=== PATIENT | male | born 1935 | race Hispanic/Latino ===

== ENCOUNTER → 2019-05-22 | Outpatient (CLI) | payer MEDICARE ==
[~2019-05-22] MED LIST: AEC81 PO; GEMF600T5 PO; LOSA1TAB37 PO
== END | disposition home or self-care (01) ==
LOC: SHCH 04-23 09:50
PROVIDERS: ATTEND Internal Medicine Cardiovascular Disease
DX: I35.0 Nonrheumatic aortic (valve) stenosis (principal)
CPT/HCPCS: 93306

== ENCOUNTER → 2020-09-17 | Outpatient (CLI) | payer MEDICARE | END | disposition home or self-care (01) | LOC: SHCH 15:45 | PROVIDERS: ATTEND Internal Medicine Cardiovascular Disease | DX: I35.2 Nonrheumatic aortic (valve) stenosis with insufficiency (principal); I10 Essential (primary) hypertension; E11.9 Type 2 diabetes mellitus without complications; E78.5 Hyperlipidemia, unspecified | CPT/HCPCS: 93306; 93356 ==

== ENCOUNTER → 2020-09-22 | Outpatient (CLI) | payer MEDICARE | END | disposition home or self-care (01) | LOC: SHCH 15:20 | PROVIDERS: ATTEND Internal Medicine Cardiovascular Disease | DX: I65.23 Occlusion and stenosis of bilateral carotid arteries (principal); E78.5 Hyperlipidemia, unspecified; E11.9 Type 2 diabetes mellitus without complications; I10 Essential (primary) hypertension | CPT/HCPCS: 93880 ==

== ENCOUNTER → 2021-11-24 | Outpatient (CLI) | payer MEDICARE ==
[~2021-11-24] MED LIST changes: -GEMF600T5 PO; +GEMF600T89 PO
== END | disposition home or self-care (01) ==
LOC: SHCH 14:09
PROVIDERS: ATTEND Internal Medicine Cardiovascular Disease
DX: I08.8 Other rheumatic multiple valve diseases (principal); I11.9 Hypertensive heart disease without heart failure; E11.9 Type 2 diabetes mellitus without complications; E78.5 Hyperlipidemia, unspecified
CPT/HCPCS: 93306

== ENCOUNTER 2022-08-16 19:41 | Observation (INO) | payer MEDICARE ==
[~2022-08-16] VITALS: Ht 165.1 cm; Wt 60.1 kg
[2022-08-16] MEDS ORDERED: 0.9%NACL 1000ML 1,000 ML IV ONE (20:00)
[2022-08-16] MEDS ORDERED: ACETAMINOPHEN 325 MG TAB PO SCH (20:00)
[2022-08-16 20:18] LABS: APPEARANCE,URINE CLEAR (CLEAR); BILIRUBIN,URINE NEGATIVE (NEGATIVE); COLOR,URINE LIGHT-YELLOW (YELLOW); GLUCOSE, URINE (UA) NEGATIVE (NEGATIVE); KETONES,URINE NEGATIVE (NEGATIVE); LEUKOCYTE ESTERASE ,URINE NEGATIVE Leu/uL (NEGATIVE); NITRATE,URINE NEGATIVE (NEGATIVE); OCCULT BLOOD,URINE LARGE (NEGATIVE); PH,URINE 5.5 (5.0-8.0); PROTEIN,URINE 10 mg/dL (NEGATIVE); UROBILINOGEN,URINE 0.2 mg/dL (0.2-1.0)
[2022-08-16 20:19] LABS: BASOPHILS % (AUTO) 0.4 % (0.0-5.0); EOSINOPHILS % (AUTO) 0.3 % (0.0-8.0); HEMATOCRIT 43.4 % (42-54); LYMPHOCYTES % (AUTO) 19.5 % (21.0-51.0); MEAN CORPUSCULAR HEMOGLOBIN 30.5 pg (27.0-33.0); MEAN CORPUSCULAR HGB CONC 34.6 g/dL (32.0-36.0); MEAN CORPUSCULAR VOLUME 88.2 fL (79-99); MONOCYTES % (AUTO) 10.9 % (3.0-13.0); NEUTROPHILS % (AUTO) 68.5 % (40.0-77.0); PLATELET COUNT (AUTO) 179 K/uL (130-400); RED BLOOD CELL COUNT(AUTO) 4.92 MIL/uL (4.50-6.20); RED CELL DISTRIBUTION WIDTH 12.6 % (11.0-15.5); WHITE BLOOD COUNT (AUTO) 7.5 K/uL (4.8-10.8)
[2022-08-16 20:33] LABS: CREATININE 1.1 mg/dL (0.5-1.5); POTASSIUM 3.8 mmol/L (3.5-5.1)
[2022-08-16 20:38] LABS: ALBUMIN 3.1 g/dL (3.5-5.0); TOTAL PROTEIN, SERUM 7.3 g/dL (6.0-8.3)
[2022-08-16] MEDS ORDERED: AZITHROMYCIN 500MG+NS 250ML 250 ML ONE (20:49)
[2022-08-16 20:51] LABS: BACTERIA,URINE RARE /HPF (None Seen); MUCUS,URINE RARE LPF (None Seen); RBC,URINE 51-100 /HPF (0-1); SQUAMOUS EPITHELIAL CELL,UR RARE /HPF (0-2)
[2022-08-16] MEDS ORDERED: 0.9%NACL 1000ML 1,000 ML IV SCH (21:00)
[2022-08-16] MEDS ORDERED: AZITHROMYCIN 500MG+NS 250ML IVPB SCH (21:00)
[2022-08-16] MEDS ORDERED: CEFTRIAXONE 1G VIAL IVP SCH (21:00)
[2022-08-16] MEDS ORDERED: CLONIDINE HCL 0.1 MG TABLET PO PRN (22:00)
[2022-08-16] MEDS ORDERED: LACTULOSE 20 GM/30 ML UDCUP PO PRN (22:00)
[2022-08-16] MEDS ORDERED: ACETAMINOPHEN 325 MG TAB PO PRN (22:00)
[2022-08-16] MEDS ORDERED: LABETALOL 20MG SYG IV PRN (22:00)
[2022-08-16] MEDS ORDERED: ACETAMINOPHEN 650 MG SUPPOSITORY RC PRN (22:00)
[2022-08-16] MEDS ORDERED: TEMAZEPAM 15 MG CAPSULE PO PRN (22:00)
[2022-08-16] MEDS ORDERED: HYDRALAZINE 20MG/ML VIAL IV PRN (22:00)
[2022-08-16] MEDS ORDERED: ONDANSETRON 4MG INJ IVP PRN (22:00)
[2022-08-16] MEDS ORDERED: DOCUSATE SODIUM 100 MG CAP PO PRN (22:00)
[2022-08-16] MEDS ORDERED: ROSU10TA28 PO (22:36)
[2022-08-16] MEDS ORDERED: DONE10TA43 PO (22:36)
[2022-08-16] MEDS ORDERED: ICOS1CAP PO (22:36)
[2022-08-16] MEDS ORDERED: ERGO500093 PO (22:36)
[2022-08-16] MEDS ORDERED: LOSA25TA41 PO (22:36)
[2022-08-17 00:40] VITALS: BP 153/70
[2022-08-17] MEDS ORDERED: D-ME118S56 PO (01:02)
[2022-08-17 03:09] VITALS: BP 150/64
[2022-08-17 04:00] LABS: BASOPHILS % (AUTO) 0.5 % (0.0-5.0); EOSINOPHILS % (AUTO) 2.2 % (0.0-8.0); HEMATOCRIT 39.5 % (42-54); LYMPHOCYTES % (AUTO) 32.3 % (21.0-51.0); MEAN CORPUSCULAR HEMOGLOBIN 30.7 pg (27.0-33.0); MEAN CORPUSCULAR HGB CONC 34.7 g/dL (32.0-36.0); MEAN CORPUSCULAR VOLUME 88.6 fL (79-99); MONOCYTES % (AUTO) 14.1 % (3.0-13.0); NEUTROPHILS % (AUTO) 50.6 % (40.0-77.0); PLATELET COUNT (AUTO) 158 K/uL (130-400); RED BLOOD CELL COUNT(AUTO) 4.46 MIL/uL (4.50-6.20); RED CELL DISTRIBUTION WIDTH 12.4 % (11.0-15.5)
[2022-08-17 04:13] LABS: MAGNESIUM 1.7 mg/dL (1.80-2.40); PHOSPHORUS 2.8 mg/dL (2.5-4.9); POTASSIUM 3.5 mmol/L (3.5-5.1)
[2022-08-17 08:00] VITALS: BP 161/86
[2022-08-17] MEDS ORDERED: GUAIFENESIN-DM 200/20 MG 10 ML PO PRN (08:00)
[2022-08-17] MEDS ORDERED: ALBUTEROL 0.083% 2.5 MG/3 ML INH IH SCH (08:00)
[2022-08-17] MEDS: CEFTRIAXONE 1G VIAL IVPB SCH (10:25)
[2022-08-17] MEDS: ENOXAPARIN SODIUM 40 MG/0.4 ML SYRINGE SQ SCH (10:25)
[2022-08-17] MEDS: AZITHROMYCIN 500MG+NS 250ML IVPB SCH (10:25)
[2022-08-17] MEDS: LOSARTAN/HYDROCHLOROTHIAZIDE 50-12.5MG TABLET PO SCH ×2 (10:31→21:12)
[2022-08-17] MEDS ORDERED: 0.9% NACL 250ML 250 ML ONE (10:45)
[2022-08-17 11:00] VITALS: BP 133/50
[2022-08-17] MEDS: IPRATROPIUM 0.5 MG/2.5 ML INH IH SCH ×3 (11:02→23:10)
[2022-08-17] MEDS: ALBUTEROL 0.083% 2.5 MG/3 ML INH IH SCH ×3 (11:02→23:10)
[2022-08-17 16:00] VITALS: BP 143/65
[2022-08-17 20:00] VITALS: BP 124/47
[2022-08-17] MEDS: SIMVASTATIN 20 MG TABLET PO SCH (21:11)
[2022-08-18] VITALS: BP 120/54
[2022-08-18 03:54] VITALS: BP 141/59
[2022-08-18 04:52] LABS: HEMATOCRIT 38.8 % (42-54); MEAN CORPUSCULAR HEMOGLOBIN 29.7 pg (27.0-33.0); MEAN CORPUSCULAR VOLUME 87.4 fL (79-99); RED BLOOD CELL COUNT(AUTO) 4.44 MIL/uL (4.50-6.20); RED CELL DISTRIBUTION WIDTH 12.2 % (11.0-15.5); WHITE BLOOD COUNT (AUTO) 6.3 K/uL (4.8-10.8)
[2022-08-18 05:02] LABS: POTASSIUM 3.5 mmol/L (3.5-5.1)
[2022-08-18] MEDS: ALBUTEROL 0.083% 2.5 MG/3 ML INH IH SCH ×4 (06:33→23:04)
[2022-08-18] MEDS: IPRATROPIUM 0.5 MG/2.5 ML INH IH SCH ×4 (06:33→23:04)
[2022-08-18 07:30] VITALS: BP 166/55
[2022-08-18] MEDS: LOSARTAN/HYDROCHLOROTHIAZIDE 50-12.5MG TABLET PO SCH ×2 (09:20→20:53)
[2022-08-18] MEDS: ENOXAPARIN SODIUM 40 MG/0.4 ML SYRINGE SQ SCH (09:20)
[2022-08-18] MEDS: CEFTRIAXONE 1G VIAL IVPB SCH (09:20)
[2022-08-18] MEDS: AZITHROMYCIN 500MG+NS 250ML IVPB SCH (09:20)
[2022-08-18 11:30] VITALS: BP 125/73
[2022-08-18] MEDS ORDERED: AMOX-426 PO (15:23)
[2022-08-18 16:30] VITALS: BP 159/60
[2022-08-18 20:00] VITALS: BP 152/67
[2022-08-18] MEDS: SIMVASTATIN 20 MG TABLET PO SCH (20:53)
[2022-08-19] VITALS: BP 135/60
[2022-08-19 04:00] VITALS: BP 139/59
[2022-08-19] MEDS: ALBUTEROL 0.083% 2.5 MG/3 ML INH IH SCH ×2 (06:18→11:09)
[2022-08-19] MEDS: IPRATROPIUM 0.5 MG/2.5 ML INH IH SCH ×2 (06:18→11:09)
[2022-08-19 08:00] VITALS: BP 130/63
[2022-08-19] MEDS: CEFTRIAXONE 1G VIAL IVPB SCH (09:38)
[2022-08-19] MEDS: ENOXAPARIN SODIUM 40 MG/0.4 ML SYRINGE SQ SCH (09:38)
[2022-08-19] MEDS: AZITHROMYCIN 500MG+NS 250ML IVPB SCH (09:38)
[2022-08-19] MEDS: LOSARTAN/HYDROCHLOROTHIAZIDE 50-12.5MG TABLET PO SCH (09:38)
== END 2022-08-19 12:25 | disposition home or self-care (01) ==
LOC: EDH 19:41 → EDHIP 21:23 → 4AH 08-17 00:33
PROVIDERS: ADMIT Internal Medicine Pulmonary Disease; ATTEND Internal Medicine Pulmonary Disease
DX: A41.9 Sepsis, unspecified organism (principal); Z20.822 Contact with and (suspected) exposure to COVID-19; J18.9 Pneumonia, unspecified organism; E86.0 Dehydration; I12.9 Hypertensive chronic kidney disease with stage 1 through stage 4 chronic kidney disease, or unspecified chronic kidney disease; N18.9 Chronic kidney disease, unspecified; E11.22 Type 2 diabetes mellitus with diabetic chronic kidney disease; E78.00 Pure hypercholesterolemia, unspecified; G30.9 Alzheimer's disease, unspecified; F02.80 Dementia in other diseases classified elsewhere, unspecified severity, without behavioral disturbance, psychotic disturbance, mood disturbance, and anxiety; R53.1 Weakness; Z79.82 Long term (current) use of aspirin; Z79.899 Other long term (current) drug therapy
CPT/HCPCS: 96361; 96365; 96366 ×7; 96375; 84484; 80053; 85025 ×2; 87040 ×2; 87088; 87807; 87804 ×2; 83605 ×2; 81001; 36415 ×3; 87635; 71045; 99291; 93005; 97039 ×4; 94640 ×10; 96376 ×3; 96372 ×3; 83735; 84100; 80048 ×2; 97161; 94664; 85027; 84145; G0378 ×60; C9803; J7030 ×2; J0696 ×4; J0456 ×4; J1650 ×3; J7050; 96368

== ENCOUNTER 2023-04-11 19:29 | Emergency (ER) | payer MEDICARE ==
[~2023-04-11] VITALS: Ht 154.9 cm; Wt 65.3 kg
[~2023-04-11 19:29] MED LIST changes: -AEC81 PO; +AMOX-426 PO; +D-ME118S56 PO; +DONE10TA43 PO; +ERGO500093 PO; -GEMF600T89 PO; +ICOS1CAP PO; +LOSA25TA41 PO; +ROSU10TA28 PO
[2023-04-12] MEDS ORDERED: BISA-189 PO (01:10)
[2023-04-12] MEDS ORDERED: MAGNESIUM HYDROXIDE 30 ML/UDCUP ONE (01:27)
[2023-04-12] MEDS: MAGNESIUM HYDROXIDE 30 ML/UDCUP PO SCH ×2 (01:34→01:35)
[2023-04-12 01:37] VITALS: BP 128/76
== END 2023-04-12 01:41 | disposition home or self-care (01) ==
LOC: EDH 19:29
DX: K59.00 Constipation, unspecified (principal); R05.9 Cough, unspecified; I10 Essential (primary) hypertension; E11.9 Type 2 diabetes mellitus without complications; E78.00 Pure hypercholesterolemia, unspecified; G30.9 Alzheimer's disease, unspecified; F02.80 Dementia in other diseases classified elsewhere, unspecified severity, without behavioral disturbance, psychotic disturbance, mood disturbance, and anxiety; Z79.899 Other long term (current) drug therapy

== ENCOUNTER → 2023-08-28 | Outpatient (CLI) | payer MEDICARE ==
[~2023-08-28] MED LIST changes: +BISA-189 PO
== END | disposition home or self-care (01) ==
LOC: SHCH 13:20
PROVIDERS: ATTEND Internal Medicine Cardiovascular Disease
DX: I08.8 Other rheumatic multiple valve diseases (principal); I10 Essential (primary) hypertension; I25.10 Atherosclerotic heart disease of native coronary artery without angina pectoris; E11.9 Type 2 diabetes mellitus without complications
CPT/HCPCS: 93306

== ENCOUNTER → 2023-08-29 | Outpatient (CLI) | payer MEDICARE ==
[2023-08-29 16:16] LABS: BASOPHILS # (AUTO) 0.05 K/uL (0.00-0.20); BASOPHILS % (AUTO) 0.8 % (0.0-5.0); EOSINOPHILS # (AUTO) 0.21 K/uL (0.00-0.70); EOSINOPHILS % (AUTO) 3.2 % (0.0-8.0); HEMATOCRIT 43.1 % (42-54); IMMATURE GRANULOCYTE ABSOLUTE 0.03 K/uL (0-1); LYMPHOCYTES # (AUTO) 1.8 K/uL (1.0-4.8); LYMPHOCYTES % (AUTO) 27.5 % (21.0-51.0); MEAN CORPUSCULAR HEMOGLOBIN 31.4 pg (27.0-33.0); MEAN CORPUSCULAR HGB CONC 32.9 g/dL (32.0-36.0); MEAN CORPUSCULAR VOLUME 95.4 fL (79-99); MONOCYTES # (AUTO) 0.7 K/uL (0.1-1.0); NEUTROPHILS # (AUTO) 3.8 K/uL (1.8-7.7); PLATELET COUNT (AUTO) 214 K/uL (130-400); RED BLOOD CELL COUNT(AUTO) 4.52 MIL/uL (4.50-6.20); RED CELL DISTRIBUTION WIDTH 13.7 % (11.0-15.5); WHITE BLOOD COUNT (AUTO) 6.6 K/uL (4.8-10.8)
[2023-08-29 16:37] LABS: ALBUMIN 3.2 g/dL (3.5-5.0); BILIRUBIN,TOTAL 0.5 mg/dL (0.2-1.0); CREATININE 1.5 mg/dL (0.5-1.5); POTASSIUM 3.8 mmol/L (3.5-5.1); TOTAL PROTEIN, SERUM 6.6 g/dL (6.0-8.3)
== END | disposition home or self-care (01) ==
LOC: LAB 13:38
PROVIDERS: ATTEND Internal Medicine Cardiovascular Disease
DX: I10 Essential (primary) hypertension (principal); E78.5 Hyperlipidemia, unspecified
CPT/HCPCS: 36415; 80053; 83735; 83880; 85025

== ENCOUNTER 2024-07-28 22:34 | Emergency (ER) | payer MEDICARE ==
[~2024-07-28] VITALS: Ht 167.6 cm; Wt 72.6 kg
[~2024-07-28 22:34] MED LIST changes: -ROSU10TA28 PO; +ROSU10TA72 PO
[2024-07-28 22:35] VITALS: TEMP 98.1
[2024-07-28] MEDS ORDERED: DONE10TA43 PO (23:02)
[2024-07-28] MEDS ORDERED: FENO145T26 PO (23:04)
[2024-07-28] MEDS ORDERED: IBUP-2077 PO (23:04)
[2024-07-28] MEDS ORDERED: LOSA50TA64 PO (23:04)
[2024-07-28] MEDS ORDERED: NAPR-1023 PO (23:04)
[2024-07-28] MEDS: NITROGLYCERIN 1GM OINT 1 INCH/1GM TD ONE (23:12)
[2024-07-28] MEDS: hydrALAZine 20MG/ML VIAL IV ONE (23:12)
[2024-07-28 23:25] LABS: BASOPHILS # (AUTO) 0.05 K/uL (0.00-0.20); BASOPHILS % (AUTO) 0.5 % (0.0-5.0); EOSINOPHILS # (AUTO) 0.28 K/uL (0.00-0.70); EOSINOPHILS % (AUTO) 2.9 % (0.0-8.0); IMMATURE GRANULOCYTE ABSOLUTE 0.06 K/uL (0-1); LYMPHOCYTES # (AUTO) 3.2 K/uL (1.0-4.8); LYMPHOCYTES % (AUTO) 33.5 % (21.0-51.0); MEAN CORPUSCULAR HEMOGLOBIN 30.9 pg (27.0-33.0); MEAN CORPUSCULAR HGB CONC 33.7 g/dL (32.0-36.0); MEAN CORPUSCULAR VOLUME 91.7 fL (79-99); MONOCYTES # (AUTO) 0.8 K/uL (0.1-1.0); MONOCYTES % (AUTO) 8.8 % (3.0-13.0); NEUTROPHILS # (AUTO) 5.1 K/uL (1.8-7.7); NEUTROPHILS % (AUTO) 53.7 % (40.0-77.0); PLATELET COUNT (AUTO) 244 K/uL (130-400); RED BLOOD CELL COUNT(AUTO) 4.47 MIL/uL (4.50-6.20); RED CELL DISTRIBUTION WIDTH 13.7 % (11.0-15.5); WHITE BLOOD COUNT (AUTO) 9.5 K/uL (4.8-10.8)
[2024-07-28 23:33] LABS: CREATININE 1.3 mg/dL (0.5-1.3)
[2024-07-28 23:38] LABS: MAGNESIUM 1.9 mg/dL (1.80-2.40)
[2024-07-28 23:44] LABS: B-TYPE NATRIURETIC PEPTIDE 63 pg/mL (0-100)
[2024-07-28 23:52] VITALS: BP 145/55; PULSE 80; RESP 17; O2SAT 96
== END 2024-07-29 00:46 | disposition home or self-care (01) ==
LOC: EDH 22:34
DX: I10 Essential (primary) hypertension (principal); F02.80 Dementia in other diseases classified elsewhere, unspecified severity, without behavioral disturbance, psychotic disturbance, mood disturbance, and anxiety; E11.9 Type 2 diabetes mellitus without complications; E78.00 Pure hypercholesterolemia, unspecified; G30.9 Alzheimer's disease, unspecified; Z51.5 Encounter for palliative care; Z79.899 Other long term (current) drug therapy
CPT/HCPCS: 99285; 96374; 71045; 82550; 83735; 84484; 80048; 83880; 85025; 36415; J0360